=== PATIENT | female | born 1980 | race Caucasian/White ===

== ENCOUNTER 2016-04-17 10:12 | Emergency (ER) | payer BC, OTHER ==
[~2016-04-17] VITALS: Ht 167.6 cm; Wt 67.4 kg
[~2016-04-17 10:12] MED LIST: MTR600X PO; PRENTAB26 PO
[2016-04-17 10:30] VITALS: TEMP 36.8; Ht 167.6 cm; Wt 67.4 kg
--- NOTE | 2016-04-17 11:36 | DIAGNOSTIC IMAGING REPORT ---
RIGHT KNEE 3 VIEWS CLINICAL HISTORY: Right knee pain following fall. COMPARISON: None FINDINGS: Alignment of the right knee is anatomic. There is no acute fracture or joint effusion. Joint spaces are preserved. Flexion of the right knee is noted. IMPRESSION: No acute fracture or joint effusion of the right knee. Electronically signed by: Papo Pascual M.D. 04/17/2016 11:34 AM Dictated Date/Time: 04/17/2016 11:33 AM
--- NOTE | 2016-04-17 11:53 | EMERGENCY ROOM VISIT NOTE ---
ED Visit Note First contact with patient: 10:48 CHIEF COMPLAINT: Knee pain HISTORY OF PRESENT ILLNESS: This 35-year-old female patient presents to the emergency department ambulatory after sustaining an injury to the right knee yesterday morning. The patient states that she slipped and fell on ice, landing onto the right knee. She reports swelling in the knee. There is a small abrasion to the anterior aspect of the knee and some surrounding bruising. There is increased pain with ambulation. They rate the pain as sharp and 5/10. The patient states they are able to walk on it. No numbness or tingling. No previous injuries to this knee. No ankle, foot or hip pain. REVIEW OF SYSTEMS: A 6 system review of systems was completed with positives and pertinent negatives listed in the HPI. ALLERGIES: Penicillins MEDICATIONS: No chronic medications PMH: No significant past medical history. SOCIAL HISTORY: The patient lives locally with her . She is a smoker. She denies alcohol use. PHYSICAL EXAM: Vital Signs: Reviewed Nurse's notes, vital signs stable. GENERAL : This is a 35-year-old female, no acute distress, but appears in pain, well- developed, well-nourished. MENTAL STATUS: Alert, oriented to person place and time, and cooperative. MUSCULOSKELETAL: The right knee is not swollen. There is no ecchymosis. There is a small abrasion to the anterior aspect. There is no joint effusion present. The patient is tender over the patella. There is no joint line tenderness. The patella does not subluxate. Range of motion is full. Strength of the quads and hamstrings is 5/5. Juan J's is negative. Sumi's and Anterior Drawer tests are negative. There is no laxity with varus and valgus stressing. The foot and toes are warm and well-perfused. Dorsalis pedis pulse 2+. Sensation to pain and light touch is intact. Capillary refill less than 2 seconds. RADIOGRAPHIC FINDINGS: RIGHT KNEE 3 VIEWS CLINICAL HISTORY: Right knee pain following fall. COMPARISON: None FINDINGS: Alignment of the right knee is anatomic. There is no acute fracture or joint effusion. Joint spaces are preserved. Flexion of the right knee is noted. IMPRESSION: No acute fracture or joint effusion of the right knee. EMERGENCY DEPARTMENT COURSE: I examined the patient. X-rays of the right knee were reviewed by myself and read by radiology and reveal no acute fracture or dislocation. The patient was placed in an Hao wrap. She was encouraged to follow-up with orthopedics as needed. The patient was discharged home in good condition. DIAGNOSIS: Knee pain Current/Historical Medications Scheduled PRN Ibuprofen (Ibuprofen), 600 MG PO Q4H PRN for PAIN, BELL, CRAMPING OR FEVER Allergies Coded Allergies: Penicillins (Verified Allergy, Unknown, HIVES, 04/17/16) Vital Signs Date Time Temp Pulse Resp B/P Pulse Ox O2 Delivery O2 Flow Rate FiO2 04/17/16 12:10 94 18 116/73 97 04/17/16 10:30 36.8 90 18 124/85 98 Room Air Departure Information Impression Primary Impression: Contusion of right knee Dispostion Home / Self-Care Condition GOOD Referrals No Doctor, Assigned (PCP) Joe Perkins M.D. Patient Instructions My [facility] Additional Instructions You have been treated in the Emergency Department for Knee Pain. For pain control, you can use the following [id number] medicines (if >12 yo): - Regular strength (325mg/tab) Tylenol (acetaminophen) 2 tabs every 4-6 hours as needed. Do not exceed 12 tablets in a 24 hour period. Avoid taking more than 4 grams (4000 mg) of Tylenol per day. This includes any other sources of acetaminophen you may take on a regular basis. - Regular strength (200 mg/tab) Advil (ibuprofen) 1-2 tabs every 4-6 hours as needed. Do not exceed a dose of 3200 mg per day. If this is a recent injury (<24 hrs), ice can be applied to the area of pain for the first 3 days to help decrease pain and inflammation. Ice massages can be performed by freezing water in a paper cup, peeling back the cup to expose the ice and then massaging over the affected area. Wear the Hao wrap as needed when up and walking around. Follow-up with orthopedics if you have continued severe pain in the knee in 2-3 days. Return to the Emergency Department if your current symptoms worsen despite treatment course outlined above.
[2016-04-17 12:10] VITALS: BP 116/73; PULSE 94; O2SAT 97
== END 2016-04-17 12:10 | disposition home or self-care (01) ==
LOC: C.EDB 10:13 → C.EDD 12:10
DX: S80.01XA Contusion of right knee, initial encounter (principal); W00.0XXA Fall on same level due to ice and snow, initial encounter; F17.210 Nicotine dependence, cigarettes, uncomplicated

== ENCOUNTER 2017-03-29 14:47 | Emergency (ER) | payer BC, OTHER ==
[~2017-03-29] VITALS: Ht 165.1 cm; Wt 65.6 kg
[~2017-03-29 14:47] MED LIST changes: -PRENTAB26 PO
[2017-03-29 14:52] VITALS: Ht 165.1 cm; Wt 65.6 kg
[2017-03-29] MEDS ORDERED: TRAM-10 PO (15:00)
--- NOTE | 2017-03-29 15:13 | EMERGENCY ROOM VISIT NOTE ---
ED Visit Note First contact with patient: 15:03 Chief Complaint: Left third Finger Laceration History of Present Illness: This patient is a 36-year-old female who presents to the Emergency Department by private vehicle for evaluation of their left third finger laceration. Patient sustained the laceration approximately one hour ago, she states that she was working in the kitchen and tripped hitting her finger on a food saver. They report a moderate amount of bleeding initially. They reports some numbness and tingling of the finger around the laceration. They report decreased range of motion of the affected digit due to pain. They have tried no medications for the pain. Patient rates her current discomfort as a 3/10, but states it is 8/10 when she tries to move it. Patient denies any other injuries. Patient's Tetanus status is currently up-to- date. She is right-hand dominant. Medications: Reviewed in chart Allergies: Reviewed in chart PMH: No significant past medical or surgical history. No previous injuries to this hand. SHx: Lives at home. She is a current every day smoker. ROS: All pertinent positive and negative review of systems are appropriately documented in the History of Present Illness. Physical Exam: VITAL SIGNS - Vital signs and nursing notes were reviewed. GENERAL -Pleasant and cooperative, in no acute distress. Communicates well with provider and answers questions appropriately. SKIN - There is a 1 cm long laceration noted on the dorsum of the left third finger just above the nail cuticle. The laceration does not extend into the nailbed. The wound is superficial and the edges do not gape apart with traction. No foreign bodies appreciated. Upon further examination there are no deep structures including vessel, tendon, or bony structures appreciated. There is no active bleeding noted. MUSCULOSKELETAL - Laceration as described above. +5/5 strength appreciated of the affected digit. Full range of motion of the affected digit. NEUROLOGIC - No sensory defects of the affected digit were appreciated utilizing light touch for evaluation. VASCULAR - Capillary refill was brisk. Imaging: LEFT THIRD FINGER 3 VIEWS CLINICAL HISTORY: Third finger injury. FINDINGS: 3 views of the left third finger are obtained. No prior studies are available for comparison at the time of dictation. The skeletal structures are well mineralized. No fracture is seen. The third metacarpophalangeal and interphalangeal joints are maintained. Soft tissue edema is present in the third finger, greatest around the proximal interphalangeal joint. IMPRESSION: Soft tissue swelling with no radiographic evidence of left third finger fracture. ED Course: Patient was seen and evaluated by myself. Differential diagnosis includes contusion, abrasion, laceration, open fracture, among others. An x-ray of the left 3rd digit was performed, which shows no acute hetal abnormalities. The wound on the patient's finger is very superficial, there is no indication for primary closure. The wound was cleansed with normal saline and Betadine, and dressed with a Bacitracin dressing. Patient educated on wound care and worrisome symptoms for return visit to the Emergency Department, she verbalized understanding. Patient discharged to home in good condition and ambulatory. Current/Historical Medications Scheduled PRN Ibuprofen (Ibuprofen), 600 MG PO Q4H PRN for PAIN, BELL, CRAMPING OR FEVER Tramadol (Ultram), 50 MG PO Q6 PRN for Pain Allergies Coded Allergies: Penicillins (Verified Allergy, Unknown, HIVES, 04/17/16) Vital Signs Date Time Temp Pulse Resp B/P (MAP) Pulse Ox O2 Delivery O2 Flow Rate FiO2 03/29/17 16:31 36.8 92 16 132/81 99 03/29/17 16:30 92 16 132/81 99 Room Air 03/29/17 14:52 36.8 98 16 140/88 99 Room Air Departure Information Impression Primary Impression: Laceration of left middle finger Dispostion Home / Self-Care Condition GOOD Referrals Cheryl HePMiguelAMiguel (PCP) Patient Instructions ED Abrasion, [facility] Additional Instructions You were seen in the ER today for laceration on your left middle finger. Your wound is superficial and does not require any stitches. Your x-ray was negative for any fractures. Proper wound care is essential for adequate wound healing and infection prevention. You can shower and clean the wound with soap and water. Do not scour over the wound, pat dry with a towel. Do not submerse the wound (i.e. bathe or dish wash) for the next week, until the wound is fully healed. You can use an antibiotic ointment with a dressing over the wound for the next 3-4 days. After this time you may leave the wound dry and open to the air. As with any laceration you may have received nerve damage to the surrounding tissues. This damage may or may not be permanent. For pain control, you can use the following [id number] medicines (if >12 yo): - Regular strength (325mg/tab) Tylenol (acetaminophen) 2 tabs every 4-6 hours as needed. Do not exceed 10 tablets in a 24 hour period. Avoid taking more than 3000mg of Tylenol per day. This includes any other sources of acetaminophen you may take on a regular basis. - Regular strength (200 mg/tab) Advil (ibuprofen) 1-2 tabs every 4-6 hours as needed. Do not exceed a dose of 2400 mg per day. Look for signs of infection of the wound including: increased pain, swelling, foul discharge, streaking, or increased temperature. If any of these are noticed you should return to the Emergency Department for further assessment and treatment. Return to the emergency department if your symptoms worsen despite treatment course outlined above. Problem Qualifiers Primary Impression: Laceration of left middle finger Encounter type: initial encounter Damage to nail status: without damage Foreign body presence: without foreign body Qualified Codes: S61.213A - Laceration without foreign body of left middle finger without damage to nail, initial encounter
[2017-03-29] MEDS ORDERED: LIDOCAINE 1% BUFFERED INJ 20 ML VIAL INFIL ONE (15:15)
--- NOTE | 2017-03-29 15:45 | DIAGNOSTIC IMAGING REPORT ---
LEFT THIRD FINGER 3 VIEWS CLINICAL HISTORY: Third finger injury. FINDINGS: 3 views of the left third finger are obtained. No prior studies are available for comparison at the time of dictation. The skeletal structures are well mineralized. No fracture is seen. The third metacarpophalangeal and interphalangeal joints are maintained. Soft tissue edema is present in the third finger, greatest around the proximal interphalangeal joint. IMPRESSION: Soft tissue swelling with no radiographic evidence of left third finger fracture. Electronically signed by: Manjeet Brooks M.D. 03/29/2017 3:43 PM Dictated Date/Time: 03/29/2017 3:42 PM
[2017-03-29 16:31] VITALS: BP 132/81; PULSE 92; TEMP 36.8; O2SAT 99
== END 2017-03-29 16:32 | disposition home or self-care (01) ==
LOC: C.EDB 14:49 → C.EDD 16:32
DX: S61.213A Laceration without foreign body of left middle finger without damage to nail, initial encounter (principal); W45.8XXA Other foreign body or object entering through skin, initial encounter